=== PATIENT | male | born 1935 ===

== ENCOUNTER → 2020-09-13 | Outpatient (CLI) | payer MEDICARE | END | disposition home or self-care (01) | LOC: CFH 12:28 | PROVIDERS: ATTEND Internal Medicine Clinical Cardiac Electrophysiology | DX: I08.3 Combined rheumatic disorders of mitral, aortic and tricuspid valves (principal); I25.10 Atherosclerotic heart disease of native coronary artery without angina pectoris; I11.9 Hypertensive heart disease without heart failure; I25.2 Old myocardial infarction; Z95.0 Presence of cardiac pacemaker | CPT/HCPCS: 93306 ==